=== PATIENT | male | born 1980 | race Two or more races ===

== ENCOUNTER 2019-04-30 13:31 | Inpatient (IN) | payer MEDICAID, OTHER ==
[~2019-04-30] VITALS: Ht 162.6 cm; Wt 73.5 kg
[2019-04-30 16:36] LABS: Basophils # (auto) 0.1 uL; Basophils % (auto) 0.5 % (0.0-2.0); Eosinophils # (auto) 0 uL; Eosinophils % (auto) 0.3 % (0.0-7.0); Hematocrit 47.3 % (41.0-53.0); Hemoglobin 16.5 g/dL (13.5-17.5); Lymphocytes # (auto) 2.1 uL; Lymphocytes % (auto) 13.9 % (10.0-50.0); Mean Corpuscular Hemoglobin 33.6 pg (28.0-32.0); Mean Corpuscular Hgb Conc. 34.8 g/dL (32.0-36.0); Mean Corpuscular Volume 96.6 fL (80.0-100.0); Monocytes # (auto) 0.9 uL; Monocytes % (auto) 5.9 % (0.0-12.0); Neutrophils # (auto) 11.8 uL; Neutrophils % (auto) 79.4 % (37.0-80.0); Nucleated Red Blood Cells % 0.1 %; Platelet Count (auto) 165 10^3/uL (140-450); Red Cell Distribution Width 12.2 % (11.8-14.3); White Blood Cell 14.8 10^3/uL (4.4-10.8)
[2019-04-30 16:47] LABS: Albumin 4.1 g/dL (3.4-5.0); Calcium 8.7 mg/dL (8.5-10.1)
[2019-04-30 16:51] LABS: BUN/Creatinine Ratio 18.4; Bilirubin, Total 0.6 mg/dL (0.2-1.0); Total Protein 8.3 g/dL (6.4-8.2)
[2019-04-30] MEDS ORDERED: SODIUM CHLORIDE 0.9% 1,000 ML IV ONE (19:00)
[2019-04-30] MEDS ORDERED: cefTRIAXone 1GM/50ML D5W 50 ML IV ONE (19:00)
[2019-04-30] MEDS ORDERED: IBUPROFEN 600 MG TAB PO ONE (19:00)
[2019-04-30] MEDS ORDERED: CLINDAMYCIN 600MG IV 50 ML IV ONE (21:00)
[2019-04-30] MEDS ORDERED: TEMAZEPAM 15 MG CAP PO PRN (22:30)
[2019-04-30] MEDS ORDERED: ACETAMINOPHEN 325 MG TAB PO PRN (22:30)
[2019-04-30] MEDS ORDERED: ONDANSETRON HCL 4 MG/2 ML VIAL IV PRN (22:30)
[2019-04-30] MEDS ORDERED: DOCUSATE SOD 100 MG CAP PO PRN (22:30)
[2019-04-30] MEDS ORDERED: LORazepam 0.5 MG TAB PO PRN (22:30)
[2019-04-30] MEDS ORDERED: HYDROcodone-ACET 5/325MG TAB PO PRN (22:30)
[2019-04-30] MEDS ORDERED: MORPHINE SULFATE 4 MG/ML SYR/VIAL IV PRN (22:30)
[2019-04-30] MEDS: SODIUM CHLORIDE 0.9% 1,000 ML IV SCH (23:40)
[2019-05-01 00:45] VITALS: BP 104/60
--- NOTE | 2019-05-01 01:30 | NUR ---
MS admit from ED. pt arrived from ED via wheelchair. pt awake, alert and oriented x4. pt able to ambulate to bed without issue. pt on room air no distress noted. pt oriented to this nurse, room, bed controls, and call light usage. pt has wound on medical lower abdomen, non draining at this time MELISSA, wound photo taken. pt updated on plan of care, on questions at this time. pt bed locked, low and 2x rails up. call light in reach, encouraged to call as needed. this nurse will round q1hr and prn.
[2019-05-01] MEDS: CLINDAMYCIN 600MG IV 50 ML IV SCH ×4 (04:25→22:04)
[2019-05-01 06:00] VITALS: BP 94/56
[2019-05-01 07:33] LABS: BUN/Creatinine Ratio 19.5; Calcium 8.1 mg/dL (8.5-10.1); Potassium 3.7 mmol/L (3.5-5.1)
[2019-05-01 07:35] LABS: Basophils # (auto) 0.1 uL; Eosinophils # (auto) 0.1 uL; Hematocrit 39.8 % (41.0-53.0); Hemoglobin 13.9 g/dL (13.5-17.5); Lymphocytes # (auto) 2.1 uL; Lymphocytes % (auto) 20.9 % (10.0-50.0); Mean Corpuscular Hemoglobin 33.8 pg (28.0-32.0); Mean Corpuscular Volume 96.7 fL (80.0-100.0); Monocytes % (auto) 10.4 % (0.0-12.0); Neutrophils # (auto) 6.6 uL; Neutrophils % (auto) 66.7 % (37.0-80.0); Platelet Count (auto) 140 10^3/uL (140-450); Red Blood Cells 4.12 10^6/uL (4.5-5.90); White Blood Cell 9.9 10^3/uL (4.4-10.8)
[2019-05-01 08:50] VITALS: BP 104/59
[2019-05-01 12:45] VITALS: BP 103/60
[2019-05-01] MEDS ORDERED: cefTRIAXone 1GM/50ML D5W 50 ML IV ONE (12:45)
[2019-05-01] MEDS: SODIUM CHLORIDE 0.9% 1,000 ML IV SCH ×2 (14:52→16:48)
[2019-05-01 17:14] VITALS: BP 115/63
--- NOTE | 2019-05-01 19:25 | NUR ---
Opening Shift Note Assumed care of patient. Patient is awake and alert. No S/S of distress/SOB or pain. Instructed on POC and to call for assist PRN, will continue to monitor for changes. Bed locked in lowest position and bed rails up x2. Call light within reach.
[2019-05-01 19:48] LABS: Alcohol, Urine < 3.0 mg/dL (0-5); Amphetamine Screen, Urine NEGATIVE (NEGATIVE); Barbiturate Scree,Urine NEGATIVE (NEGATIVE); Benzodiazephine Screen, Urine NEGATIVE (NEGATIVE); Cannabinoid Screen, Urine NEGATIVE (NEGATIVE); Cocaine Screen, Urine NEGATIVE (NEGATIVE); Opiate Scree,Urine POSITIVE (NEGATIVE); Phencyclidine Screen, Urine NEGATIVE (NEGATIVE)
[2019-05-01 22:00] VITALS: BP 119/62
[2019-05-02] MEDS: CLINDAMYCIN 600MG IV 50 ML IV SCH ×4 (04:08→22:00)
[2019-05-02 05:00] VITALS: BP 103/57
[2019-05-02 05:49] LABS: Basophils # (auto) 0 uL; Basophils % (auto) 0.4 % (0.0-2.0); Eosinophils # (auto) 0.1 uL; Lymphocytes # (auto) 1.8 uL; Nucleated Red Blood Cells % 0.1 %
[2019-05-02 05:55] LABS: Eosinophils % (auto) 1.1 % (0.0-7.0); Hematocrit 38.7 % (41.0-53.0); Hemoglobin 13.9 g/dL (13.5-17.5); Lymphocytes % (auto) 22.1 % (10.0-50.0); Mean Corpuscular Hemoglobin 34.2 pg (28.0-32.0); Mean Corpuscular Hgb Conc. 35.8 g/dL (32.0-36.0); Mean Corpuscular Volume 95.4 fL (80.0-100.0); Monocytes # (auto) 0.7 uL; Monocytes % (auto) 8.3 % (0.0-12.0); Neutrophils # (auto) 5.5 uL; Neutrophils % (auto) 68.1 % (37.0-80.0); Platelet Count (auto) 140 10^3/uL (140-450); Red Blood Cells 4.05 10^6/uL (4.5-5.90); Red Cell Distribution Width 11.9 % (11.8-14.3)
--- NOTE | 2019-05-02 07:00 | NUR ---
OPENING NOTE PATIENT AWAKE, ALERT AND ORIENTED, UNLABORED BREATHING, PATIENT HAS A DRESSING TO HIS ABDOMEN, VERY PAINFUL TO TOUCH, DRAINING PUS. POC EXPLAINED TO PATIENT, CALL LIGHT WITH IN REACH, BED IN THE LOWEST POSITION FOR SAFETY.
[2019-05-02 08:52] VITALS: BP 104/61
[2019-05-02] MEDS: cefTRIAXone 1GM/50ML D5W 50 ML IV SCH (09:00)
--- NOTE | 2019-05-02 09:30 | NUR ---
WOUND CULTURE COLLECTED AND SENT TO LAB
--- NOTE | 2019-05-02 10:00 | NUR ---
DRESSING CHANGED, WARM COMPRESS PLACED ON TOP OF THE DRESSING TO PROMOTE DRAINAGE.
[2019-05-02 13:00] VITALS: BP 106/66
--- NOTE | 2019-05-02 16:00 | NUR ---
PATIENT UP, WANTED TO TAKE A SHOWER. ALERT AND ORIENTED, STEADY GATE. INSTRUCTED PT TO LET THE SOAP AND WATER RUN DOWN THE WOUND, AND I WILL CHANGE THE DRESSING ONCE HE IS DONE.
[2019-05-02 17:00] VITALS: BP 125/65
--- NOTE | 2019-05-02 18:08 | NUR ---
WOUND CARE NOTE: Wound care in to see patient per wound care request regarding "cellulitis suprapubic area with abscess". Bedside nurse took photograph of patient's wound upon admission for reference. Patient is 39 y/o male admitted for Abscess with cellulitis. Patient is resting in bed in Rm. 295A. Patient is awake, alert and oriented. He's ambulatory and self turn and reposition. His current Jose score is 21. Noted patient's lower abdomen has redness with 1.2x1.2cm circular lesion, mildly indurated, minimal serous drainage noted, no odor noted. Patient reported that he noted it about a week ago, denies Diabetes, denies insect bite. Patient reported that it drains purulent drainage few days ago. Wound culture reported in process. Reports of pain to touch. Cleansed patient's lower abdominal wound with wound cleanser,patted dry with gauze, applied Thera honey, cover with abd pad, secured with Medipore tape. Patient tolerated well. No further wound care monitoring needed at this time. RECOMMENDATION: Nursing to continue Daily/PRN dressing change to lower abdominal wound per MD order. Addendum: 05/02/19 at 1847 by Tatyana Underwood RN Amended: Links added.
--- NOTE | 2019-05-02 18:49 | NUR ---
PATIENT AWAKE, ALERT AND ORIENTED, WOUND WAS CLEANED AND OPEN TO AIR. WARM PACK WAS GIVEN TO PATIENT TO CONTINUE WARM COMPRESS. PATIENT ONLY IN PAIN WHEN THE WOUND IS TOUCHED. BED IN THE LOWEST POSITION, CALL LIGHT WITH IN REACH.
--- NOTE | 2019-05-02 19:25 | NUR ---
Opening Shift Note Assumed care of patient. Patient is awake and alert with family at bedside. No S/S of distress/SOB or pain. Instructed on POC and to call for assist PRN, will continue to monitor for changes. Bed locked in lowest position and bed rails up x2. Call light within reach.
[2019-05-02 21:51] VITALS: BP 113/65
[2019-05-03] MEDS: SODIUM CHLORIDE 0.9% 1,000 ML IV SCH (02:48)
[2019-05-03 05:12] VITALS: BP 101/59
[2019-05-03] MEDS: CLINDAMYCIN 600MG IV 50 ML IV SCH ×2 (05:21→10:00)
--- NOTE | 2019-05-03 07:30 | NUR ---
Opening Shift Note Assumed care of patient, who is alert and oriented x4. No S/S of distress/SOB or pain. Bed is in the lowest position with 2x side rails up for safety. Call light is within reach. Instructed on POC and to call for assist PRN, will continue to monitor for changes Q1hr and PRN.
[2019-05-03 08:00] VITALS: BP 101/66
[2019-05-03] MEDS: cefTRIAXone 1GM/50ML D5W 50 ML IV SCH (09:00)
--- NOTE | 2019-05-03 10:20 | NUR ---
Paged Dr. Antoine Patient stating that if all that is pending are test results that they would like to go home and have the test results sent to him.
--- NOTE | 2019-05-03 10:22 | NUR ---
Received call back Per Dr. Antoine she does not feel comfortable with discharged patient with pending lab results. Will update the patient.
--- NOTE | 2019-05-03 10:45 | NUR ---
AMA Note MANDY HANSEN states they want to leave the hospital Against Medical Advice (AMA). Patient encouraged to stay for further treatment/stabilization. MD. Antoine notified of patient's wishes. Removed IV with clean technique and catheter fully intact. Patient tolerated well. Patient advised of the risks and benefits of leaving AMA. Patient verbalized understanding. Patient encouraged to return to the ER if symptoms do not improve or worsen.
== END 2019-05-03 10:50 | disposition left against medical advice (07) | DRG 720 ==
LOC: ER 13:39 → OVERFLOW 13:40 → WEST WING 23:10
PROVIDERS: ADMIT Hospitalist; ATTEND Internal Medicine
DX: A41.9 Sepsis, unspecified organism (principal); L02.211 Cutaneous abscess of abdominal wall; Z53.29 Procedure and treatment not carried out because of patient's decision for other reasons; L03.311 Cellulitis of abdominal wall
CPT/HCPCS: 36415; 74176; 80048; 80053; 80307; 83605; 85025; 87040; 87077; 87186; 87205; G0378; J0696; J3490